=== PATIENT | female | born 1960 | race African-American/Black ===

== ENCOUNTER 2016-12-21 13:24 | Inpatient (IN) | payer MEDICAID ==
[~2016-12-21] VITALS: Ht 167.6 cm; Wt 59.0 kg
[~2016-12-21 13:24] MED LIST: VIC GT
[2016-12-21] MEDS ORDERED: ASPIRIN 81MG TABLET PO STA (13:49)
[2016-12-21] MEDS ORDERED: HYDROCODONE/ACETAMINOPHEN 5/325MG TABLET PO ONE (14:00)
[2016-12-21 15:34] LABS: BASOPHILS % 0.5 % (0.0-2.0); EOSINOPHILS % 1.8 % (0.0-5.0); HEMATOCRIT. 35.8 % (36.0-48.0); HEMOGLOBIN. 11.5 g/dL (12.0-16.0); LYMPHOCYTES % 65.3 % (20.0-50.0); MEAN CORPUSCULAR HEMOGLOBIN 23.8 pg (28.0-32.0); MEAN CORPUSCULAR VOLUME 74.2 fL (81.0-99.0); MEAN PLATELET VOLUME 9.1 fl (7.4-10.4); MONOCYTES % 7.5 % (2.0-8.0); NEUTROPHILS % 24.9 % (40.0-76.0); PLATELET 176 x1000/uL (130-400); RED BLOOD CELL COUNT 4.82 mill/uL (4.2-5.4)
[2016-12-21 15:43] LABS: PARTIAL THROMBOPLASTIN TIME 25.8 sec (24.0-34.0); PROTHROMBIN TIME 10.7 sec
[2016-12-21 16:03] LABS: *AMPHETAMINES SCREEN URINE NEGATIVE (NEGATIVE); *BARBITURATES SCREEN URINE NEGATIVE (NEGATIVE); *BENZODIAZEPINES SCREEN URINE PRESUMTIVE POSITIVE (NEGATIVE); *COCAINE SCREEN URINE PRESUMTIVE POSITIVE (NEGATIVE); CANNABINOID URINE SCREEN PRESUMTIVE POSITIVE (NEGATIVE); METHADONE URINE SCREEN NEGATIVE (NEGATIVE); OPIATES URINE SCREEN PRESUMTIVE POSITIVE (NEGATIVE); PHENCYCLIDINE URINE SCREEN NEGATIVE (NEGATIVE)
[2016-12-21 16:27] LABS: CARBON DIOXIDE 30 mEq/L (21-32); CHLORIDE 109 mEq/L (98-107)
[2016-12-21] MEDS ORDERED: NITROGLYCERIN OINT 1GM/INCH UDPKT TD ONE (16:30)
[2016-12-21 16:32] LABS: TROPONIN I 0.04 ng/mL (0.00-0.04)
[2016-12-21] MEDS ORDERED: CLONIDINE 0.1MG TABLET PO PRN ×2 (18:45→19:00)
[2016-12-21] MEDS ORDERED: MAGNESIUM/ALUMINUM HYDROXIDE/SIMETHICONE 30ML UDC PO PRN ×2 (18:45→19:00)
[2016-12-21] MEDS ORDERED: ONDANSETRON HCL 4MG/2ML VIAL IV PRN ×2 (18:45→19:00)
[2016-12-21] MEDS ORDERED: HYDROCODONE/ACETAMINOPHEN 5/325MG TABLET PO PRN (18:45)
[2016-12-21] MEDS ORDERED: IPRATROPIUM/ALBUTEROL 0.5-3(2.5)MG/3ML NEB INH PRN ×2 (18:45→19:00)
[2016-12-21] MEDS ORDERED: ACETAMINOPHEN 325MG TABLET PO PRN ×2 (18:45→19:00)
[2016-12-21] MEDS ORDERED: ENOXAPARIN 40MG/0.4ML SYR SUBCUT SCH (19:00)
[2016-12-21] MEDS ORDERED: DOCUSATE SODIUM 100MG CAPSULE PO PRN (19:00)
[2016-12-21] MEDS: HYDROCODONE/ACETAMINOPHEN 5/325MG TABLET PO PRN ×2 (19:13→23:40)
[2016-12-21 19:43] LABS: CARBON DIOXIDE 30 mEq/L (21-32); CHLORIDE 107 mEq/L (98-107)
[2016-12-21 22:00] VITALS: BP 127/83
[2016-12-21 22:45] VITALS: BP 127/83
[2016-12-21 23:49] LABS: CREATINE KINASE MB FRACTION 1.4 ng/mL (0.5-3.6); TROPONIN I 0.03 ng/mL (0.00-0.04)
[2016-12-22] VITALS: BP 102/66
[2016-12-22 04:00] VITALS: BP 116/69
[2016-12-22] MEDS: HYDROCODONE/ACETAMINOPHEN 5/325MG TABLET PO PRN ×3 (05:52→15:09)
[2016-12-22 07:05] LABS: CREATINE KINASE MB FRACTION 0.9 ng/mL (0.5-3.6); TROPONIN I 0.03 ng/mL (0.00-0.04)
[2016-12-22 08:00] VITALS: BP 123/77
[2016-12-22] MEDS: ASPIRIN 81MG EC TABLET PO SCH (08:52)
[2016-12-22] MEDS: ENOXAPARIN 40MG/0.4ML SYR SUBCUT SCH (08:52)
[2016-12-22] MEDS ORDERED: ASPIRIN 81MG EC TABLET PO SCH (09:00)
[2016-12-22] MEDS: NICOTINE 7MG PATCH TOP SCH (11:27)
[2016-12-22 12:00] VITALS: BP 137/94
[2016-12-22 16:00] VITALS: BP 122/82
[2016-12-22] MEDS: MORPHINE SULFATE 4 MG/ML CPJ (NOT FOR IM USE) IV PRN ×2 (16:27→21:45)
[2016-12-22 19:59] VITALS: BP 122/79
[2016-12-23 00:01] VITALS: BP 126/80
[2016-12-23 04:57] VITALS: BP 109/62
[2016-12-23] MEDS: MORPHINE SULFATE 4 MG/ML CPJ (NOT FOR IM USE) IV PRN ×3 (05:13→14:26)
[2016-12-23 06:31] LABS: BASOPHILS % 0.4 % (0.0-2.0); EOSINOPHILS % 1.5 % (0.0-5.0); HEMATOCRIT. 36.2 % (36.0-48.0); HEMOGLOBIN. 11.6 g/dL (12.0-16.0); LYMPHOCYTES % 44.4 % (20.0-50.0); MEAN CORPUSCULAR VOLUME 74.8 fL (81.0-99.0); MEAN PLATELET VOLUME 8.4 fl (7.4-10.4); MONOCYTES % 9.7 % (2.0-8.0); PLATELET 165 x1000/uL (130-400); RED BLOOD CELL COUNT 4.84 mill/uL (4.2-5.4); RED CELL DISTRIBUTION WIDTH 14.9 % (11.6-14.6)
[2016-12-23 08:00] VITALS: BP 133/88
[2016-12-23 08:12] LABS: CHLORIDE 106 mEq/L (98-107)
[2016-12-23] MEDS: ASPIRIN 81MG EC TABLET PO SCH (08:21)
[2016-12-23] MEDS: ENOXAPARIN 40MG/0.4ML SYR SUBCUT SCH (08:22)
[2016-12-23 08:33] LABS: CARBON DIOXIDE 28 mEq/L (21-32)
[2016-12-23] MEDS: NICOTINE 7MG PATCH TOP SCH (10:16)
[2016-12-23 12:03] VITALS: BP 105/67
[2016-12-23 15:04] VITALS: BP 105/67
== END 2016-12-23 15:30 | disposition home or self-care (01) | DRG 203 ==
LOC: ER 13:54 → EDBEDREQTM 16:27 → EDBEDREQ 16:27 → ENRESERV 20:48 → 8WST 21:35
PROVIDERS: ADMIT Internal Medicine; ATTEND Internal Medicine
DX: M94.0 Chondrocostal junction syndrome [Tietze] (principal); I24.9 Acute ischemic heart disease, unspecified; I10 Essential (primary) hypertension; D64.9 Anemia, unspecified; E78.5 Hyperlipidemia, unspecified; F12.10 Cannabis abuse, uncomplicated; F17.200 Nicotine dependence, unspecified, uncomplicated; J45.909 Unspecified asthma, uncomplicated; F19.10 Other psychoactive substance abuse, uncomplicated; Z88.6 Allergy status to analgesic agent; Z79.899 Other long term (current) drug therapy; Z71.6 Tobacco abuse counseling; Y92.89 Other specified places as the place of occurrence of the external cause
CPT/HCPCS: 36415; 71010; 80048; 80053; 80061; 80305; 82550; 82553; 83735; 83880; 84443; 84484; 85025; 85610; 85730; 93005; 99291; J1650; J2270

== ENCOUNTER 2020-05-24 13:01 | Emergency (ER) | payer MEDICAID ==
[~2020-05-24] VITALS: Ht 165.1 cm; Wt 64.0 kg
[~2020-05-24 13:01] MED LIST changes: +DIAZ10TA4 PO; +LISI2.5T47 PO; +METO25TA6 PO; +NITR0.4T49 SL; +OMEP40CA12 PO; +PARO40TA75 PO; +PROAIR HFA; +SUMA100T16 PO
[2020-05-24] MEDS ORDERED: HYDROCODONE/ACETAMINOPHEN 5/325MG TABLET PO ONE (13:45)
[2020-05-24] MEDS ORDERED: HYDROCODONE/ACETAMINOPHEN 5/325MG TABLET PO PRN (21:30)
[2020-05-24 21:40] VITALS: BP 141/81
== END 2020-05-24 21:55 | disposition home or self-care (01) ==
LOC: ER 13:14
DX: M54.2 Cervicalgia (principal); R51.9 Headache, unspecified; M25.511 Pain in right shoulder; M25.532 Pain in left wrist; M25.531 Pain in right wrist; M79.642 Pain in left hand; M79.641 Pain in right hand; M25.551 Pain in right hip; M25.571 Pain in right ankle and joints of right foot; G89.11 Acute pain due to trauma; I11.9 Hypertensive heart disease without heart failure; J45.909 Unspecified asthma, uncomplicated; V49.49XA Driver injured in collision with other motor vehicles in traffic accident, initial encounter; V47.5XXA Car driver injured in collision with fixed or stationary object in traffic accident, initial encounter; Y93.89 Activity, other specified; Y92.488 Other paved roadways as the place of occurrence of the external cause; Z79.899 Other long term (current) drug therapy
CPT/HCPCS: 71045; 71046; 73030; 73060; 73110; 73130; 73502; 73590; 73610; 99285

== ENCOUNTER 2021-02-26 21:53 | Inpatient (IN) | payer MEDICAID ==
[~2021-02-26] VITALS: Ht 165.1 cm; Wt 77.6 kg
[2021-02-27 05:04] LABS: BASOPHILS % 0.9 % (0.0-2.0); EOSINOPHILS % 1.7 % (0.0-5.0); HEMATOCRIT. 36.1 % (36.0-48.0); HEMOGLOBIN. 11.5 g/dL (12.0-16.0); MEAN CORPUSCULAR VOLUME 75.5 fL (81.0-99.0); MEAN PLATELET VOLUME 7.9 fl (7.4-10.4); NEUTROPHILS % 39.4 % (40.0-76.0); PLATELET 187 x1000/uL (130-400); RED BLOOD CELL COUNT 4.78 mill/uL (4.2-5.4); RED CELL DISTRIBUTION WIDTH 15.8 % (11.6-14.6)
[2021-02-27 05:05] LABS: CHLORIDE 111 mEq/L (98-107)
[2021-02-27] MEDS ORDERED: MORPHINE SULFATE 4 MG/ML CPJ (NOT FOR IM USE) IV ONE ×2 (05:45→09:15)
[2021-02-27] MEDS ORDERED: NITROGLYCERIN 0.4MG TABLET SL SL ONE (06:30)
[2021-02-27 16:00] VITALS: BP 137/81
[2021-02-27 17:30] VITALS: BP 137/81
[2021-02-27] MEDS ORDERED: METO25TA6 PO (18:49)
[2021-02-27] MEDS ORDERED: DIAZ10TA4 PO (18:49)
[2021-02-27] MEDS ORDERED: LISI2.5T47 PO (18:59)
[2021-02-27] MEDS ORDERED: CLONIDINE 0.1MG TABLET PO PRN (19:15)
[2021-02-27 20:00] VITALS: BP 124/81
[2021-02-27] MEDS: LISINOPRIL 2.5MG TABLET PO SCH (21:00)
[2021-02-27] MEDS: METOPROLOL TARTRATE 25MG TABLET PO SCH (21:00)
[2021-02-27] MEDS: DILTIAZEM HCL 30MG TABLET PO SCH (23:43)
[2021-02-28] VITALS: BP 134/83
[2021-02-28 04:00] VITALS: BP 127/86
[2021-02-28 05:46] LABS: BASOPHILS % 0.5 % (0.0-2.0); EOSINOPHILS % 1.8 % (0.0-5.0); HEMATOCRIT. 38.4 % (36.0-48.0); LYMPHOCYTES % 49.4 % (20.0-50.0); MEAN CORPUSCULAR HEMOGLOBIN 23.7 pg (28.0-32.0); MEAN PLATELET VOLUME 8.7 fl (7.4-10.4); MONOCYTES % 10.2 % (2.0-8.0); NEUTROPHILS % 38.1 % (40.0-76.0); PLATELET 175 x1000/uL (130-400); RED BLOOD CELL COUNT 5.06 mill/uL (4.2-5.4); RED CELL DISTRIBUTION WIDTH 15.9 % (11.6-14.6)
[2021-02-28] MEDS: DILTIAZEM HCL 30MG TABLET PO SCH ×3 (05:54→21:00)
[2021-02-28 06:03] LABS: CHLORIDE 110 mEq/L (98-107)
[2021-02-28 08:00] VITALS: BP 123/80
[2021-02-28] MEDS: METOPROLOL TARTRATE 25MG TABLET PO SCH (09:00)
[2021-02-28] MEDS: LISINOPRIL 2.5MG TABLET PO SCH (09:42)
[2021-02-28] MEDS: ENOXAPARIN 40MG/0.4ML SYR SUBCUT SCH (09:42)
[2021-02-28] MEDS: HYDROCODONE/ACETAMINOPHEN 5/325MG TABLET PO PRN ×3 (10:52→21:31)
[2021-02-28] MEDS: FAMOTIDINE 20MG/2ML VIAL IV SCH ×2 (10:53→21:29)
[2021-02-28 12:00] VITALS: BP 118/200
[2021-02-28 15:11] LABS: *BARBITURATES SCREEN URINE NEGATIVE (NEGATIVE); *BENZODIAZEPINES SCREEN URINE NEGATIVE (NEGATIVE)
[2021-02-28 15:12] LABS: *COCAINE SCREEN URINE NEGATIVE (NEGATIVE); CANNABINOID URINE SCREEN PRESUMTIVE POSITIVE (NEGATIVE); METHADONE URINE SCREEN NEGATIVE (NEGATIVE); OPIATES URINE SCREEN PRESUMTIVE POSITIVE (NEGATIVE); PHENCYCLIDINE URINE SCREEN NEGATIVE (NEGATIVE)
[2021-02-28 15:14] LABS: *AMPHETAMINES SCREEN URINE NEGATIVE (NEGATIVE)
[2021-02-28 16:00] VITALS: BP 102/66
[2021-02-28 20:00] VITALS: BP 105/66
[2021-03-01] VITALS: BP 103/72
[2021-03-01 04:00] VITALS: BP 117/72
[2021-03-01] MEDS: DILTIAZEM HCL 30MG TABLET PO SCH (05:20)
[2021-03-01 05:46] LABS: BASOPHILS % 0.3 % (0.0-2.0); EOSINOPHILS % 1.7 % (0.0-5.0); HEMATOCRIT. 39.7 % (36.0-48.0); HEMOGLOBIN. 12.7 g/dL (12.0-16.0); LYMPHOCYTES % 59.7 % (20.0-50.0); MEAN CORPUSCULAR HEMOGLOBIN 24.4 pg (28.0-32.0); MEAN CORPUSCULAR VOLUME 76.1 fL (81.0-99.0); MEAN PLATELET VOLUME 8.1 fl (7.4-10.4); NEUTROPHILS % 28.3 % (40.0-76.0); PLATELET 184 x1000/uL (130-400); RED BLOOD CELL COUNT 5.21 mill/uL (4.2-5.4); RED CELL DISTRIBUTION WIDTH 15.6 % (11.6-14.6)
[2021-03-01 05:53] LABS: CHLORIDE 110 mEq/L (98-107)
[2021-03-01] MEDS: HYDROCODONE/ACETAMINOPHEN 5/325MG TABLET PO PRN ×2 (06:13→10:17)
[2021-03-01 08:00] VITALS: BP 115/70
[2021-03-01] MEDS: LISINOPRIL 2.5MG TABLET PO SCH (08:57)
[2021-03-01] MEDS: METOPROLOL TARTRATE 25MG TABLET PO SCH (08:57)
[2021-03-01] MEDS: ENOXAPARIN 40MG/0.4ML SYR SUBCUT SCH (09:00)
[2021-03-01] MEDS: FAMOTIDINE 20MG/2ML VIAL IV SCH (09:02)
[2021-03-01 12:21] VITALS: BP 115/70
[2021-03-01] MEDS ORDERED: FAMOTIDINE 20MG TABLET PO SCH (21:00)
== END 2021-03-01 14:00 | disposition home or self-care (01) | DRG 203 ==
LOC: ER 21:53 → 8WST 02-27 10:37 → ENRESERV 02-27 15:57
PROVIDERS: ADMIT Internal Medicine; ATTEND Internal Medicine
DX: M94.0 Chondrocostal junction syndrome [Tietze] (principal); I11.0 Hypertensive heart disease with heart failure; I50.9 Heart failure, unspecified; E11.9 Type 2 diabetes mellitus without complications; E78.5 Hyperlipidemia, unspecified; J45.909 Unspecified asthma, uncomplicated; F32.9 Major depressive disorder, single episode, unspecified; F17.200 Nicotine dependence, unspecified, uncomplicated; Z20.822 Contact with and (suspected) exposure to COVID-19; F41.9 Anxiety disorder, unspecified; F43.9 Reaction to severe stress, unspecified; R00.1 Bradycardia, unspecified; F12.90 Cannabis use, unspecified, uncomplicated; Z88.6 Allergy status to analgesic agent; Z88.8 Allergy status to other drugs, medicaments and biological substances; Z90.710 Acquired absence of both cervix and uterus; Z79.899 Other long term (current) drug therapy
CPT/HCPCS: 36415; 71045; 80048; 80053; 80305; 83880; 84484; 85025; 87426; 93005; 93306; 99285; J1650; J2270; J3490